=== PATIENT | male | born 1960 | race Caucasian/White ===

== ENCOUNTER 2021-03-15 11:10 | Emergency (ER) | payer OTHER, BC ==
[~2021-03-15] VITALS: Ht 180.3 cm; Wt 95.3 kg
[2021-03-15] MEDS ORDERED: PREDNISONE50 MG PO (13:38)
== END 2021-03-15 13:53 | disposition home or self-care (01) ==
LOC: ED 11:10
DX: S39.012A Strain of muscle, fascia and tendon of lower back, initial encounter (principal); Z91.041 Radiographic dye allergy status; X58.XXXA Exposure to other specified factors, initial encounter; Y93.89 Activity, other specified; Y92.89 Other specified places as the place of occurrence of the external cause; Y99.8 Other external cause status